=== PATIENT | female | born 1945 | race African-American/Black ===

== ENCOUNTER 2018-09-10 13:04 | Outpatient (RCR) | payer MEDICARE, MEDICAID | END 2018-09-14 | disposition home or self-care (01) | LOC: WCC 13:04 | DX: L97.111 Non-pressure chronic ulcer of right thigh limited to breakdown of skin (principal); Z99.3 Dependence on wheelchair; M19.90 Unspecified osteoarthritis, unspecified site; I10 Essential (primary) hypertension; Z88.6 Allergy status to analgesic agent | CPT/HCPCS: G0463 ==